=== PATIENT | male | born 1955 | race Caucasian/White ===

== ENCOUNTER 2021-12-11 00:17 | Inpatient (IN) | payer MEDICARE, BC, SELFPAY ==
[2021-12-11] VITALS (11 sets, daily range): BP systolic 121–167; BP diastolic 63–93; PULSE 67–110; RESP 16–29; TEMP 36.5–36.9; O2SAT 94–99; BMI 35.9
--- NOTE | 2021-12-11 00:22 | PC.NURSE ---
PT ARRIVED TO FLOOR VIA STRETCHER PER [facility] @ 0028
--- NOTE | 2021-12-11 01:24 | PC.NURSE ---
12/10/21 7506: REPORT RECEIVED FROM FREDERICK DUNBAR AT [facility]. I SPOKE WITH DR. DE OLIVEIRA WHO ACCEPTED THE PATIENT AND RECEIVED ADMISSION ORDERS. I ALSO SPOKE WITH DR. HALL, WHO REQUESTED PATIENT BE TRANSFERRED IF WE HAD BED AVAILABLE. REPORT PASSED TO Indy PEARSON RN PRIMARY NURSE.
--- NOTE | 2021-12-11 01:27 | ECG_ITS ---
APPROVED REPORT Exam: Resting ECG HR:77 bpm ECG Measurements Heart Rate 77 AXES SC 154 P -5 QRSd 120 QRS -5 QT 403 T 26 QTc 434 Conclusion SINUS RHYTHM POSSIBLE LATERAL MYOCARDIAL INFARCTION , OF INDETERMINATE AGE [30 ms Q WAVE IN I/aVL/V5/V6] ABNORMAL ECG UNCONFIRMED REPORT Electronically signed by : Nas Reyna MD 12/11/2021 14:17:53
[2021-12-11 01:28] LABS: Influenza A, PCR Not Detected (NotDetected); Influenza B, PCR Not Detected (NotDetected)
[2021-12-11 01:30] LABS: Basophils % 0.2 % (0.1-2.0); Eosinophils % 0.4 % (0.1-12.0); Hemoglobin 11.7 g/dL (14.1-18.0); Lymphocytes # 0.2 K/mm3 (0.7-4.5); Mean Corpuscular HGB Conc 32.5 g/dL (31.8-35.4); Mean Corpuscular Hemoglobin 29.6 pg (27.0-31.2); Mean Corpuscular Volume 91.1 fl (80-94); Mean Platelet Volume 7.9 fl (7.4-10.4); Monocytes # 0.1 K/mm3 (0.1-1.0); Monocytes % 3.2 % (1.7-9.3); Neutrophils # 2.7 K/mm3 (1.8-7.8); Neutrophils % 90.2 % (37.0-80.0); Platelet Count 191 K/mm3 (142-424); Red Blood Count 3.96 M/mm3 (4.60-6.20); Red Cell Distribution Width 14.4 % (11.5-17.5)
[2021-12-11 01:34] LABS: MANUAL DIFFERENTIAL MANUAL DIFFERENTIAL (MANUAL DIFF)
[2021-12-11 01:39] LABS: Anion Gap 8.6 mEq/L (5-15); Blood Urea Nitrogen 19 mg/dl (9-20); Calcium 8.6 mg/dl (8.4-10.2); Carbon Dioxide 27 mmol/L (22.0-30.0); Chloride 108 mmol/L (98-107); Creatinine Clearance Estimated 123 mL/min (50-200); Estimated Glomerular Filt Rate 84 ml/min (>60); GFR (African American) 102 ML/MIN (>60); Glucose 232 mg/dl (74-100); Potassium 3.6 mmoL/L (3.5-5.1); Sodium 140 mmol/L (136-145)
[2021-12-11 01:49] LABS: Coronavirus 19, PCR Detected (NotDetected)
[2021-12-11 02:45] LABS: Troponin I 0.11 ng/ml (0.00-0.034)
[2021-12-11 03:32] LABS: Lymphocytes % 14 % (10-50); Neutrophils % 84 % (42-76); Platelet Estimate Normal; Total Cells Counted 100
--- NOTE | 2021-12-11 04:06 | PC.NURSE ---
Pt is currently on 2L O2 NC. Has c/o soa since arrival to floor. Rhonchi and crackles noted to lung daniel. Pt denies any CP. Pt has ambulated with assist to BR. Tolerated fair. VSS at this time. Will continue to monitor.
--- NOTE | 2021-12-11 06:00 | XR_ITS ---
PROCEDURE INFORMATION: Exam: XR Chest Exam date and time: 12/11/2021 5:36 AM Age: 66 years old Clinical indication: Condition or disease; Lung condition and disease; Pneumonia; Additional info: Covid TECHNIQUE: Imaging protocol: XR of the chest. Views: 1 view. COMPARISON: No relevant prior studies available. FINDINGS: Lungs: Mild to moderate interstitial/alveolar opacities, greater on the right; question pneumonia. Pleural spaces: No pneumothorax. Heart/Mediastinum: Cardiomegaly. Bones/joints: No acute fracture. IMPRESSION: 1. Mild to moderate interstitial/alveolar opacities, greater on the right; question pneumonia. 2. Cardiomegaly.
[2021-12-11 06:13] LABS: POC Glucose,Bedside 206 (70-110)
[2021-12-11 06:13] LABS: POC Glucose,Bedside 277 (70-110)
--- NOTE | 2021-12-11 07:25 | HMH.PHAVTE ---
[facility] Pharmacy VTE Monitoring - Patient Demographics Admission date: 12/11/21 Report Date: 12/11/21 Time: 07:25 Allergies/Adverse Reactions: Patient Allergies zolpidem [From Ambien] Adverse Reaction (Verified 12/11/21 00:36) Height: 1.85 m Weight: 123.405 kg - VTE Risk Labs: VTE Related Lab Results Hgb 11.7 g/dL (14.1-18.0) L 12/11/21 01:21 Hct 36.0 % (42.0-52.0) L 12/11/21 01:21 Plt Count 191 K/mm3 (142-424) 12/11/21 01:21 BUN 19 mg/dl (9-20) 12/11/21 01:21 Creatinine 0.90 mg/dl (0.66-1.25) 12/11/21 01:21 Estimated Creat Clear 123 mL/min (50-200) 12/11/21 01:21 VTE Risk Level: Moderate Risk - Prophylaxis VTE Prophylaxis Ordered?: Yes Types of VTE Prophylaxis: TEDS Knee High Location of Applied Device: Bilateral Lower Extremeties
--- NOTE | 2021-12-11 08:08 | HMH.PHAINT ---
MEDICATION RECONCILIATION COMPLETED ON PATIENT USING EXTERNAL FILL HISTORY FROM PHARMACY AND LIST FROM [facility]. -ALEX BUNND
--- NOTE | 2021-12-11 08:37 | CA_ITS ---
APPROVED REPORT EXAM: Comprehensive 2D, Doppler, and color-flow Echocardiogram Chief Deputy Sheriff: Gayathri Villatoro CRT Ht: 6 ft 0 in Wt: 272lbs BSA: 2.43 BP: 166/85 mmHg Indications: COVID Pneuomonia, SOB, morbid obesity, HTN. 2D Dimensions LVOT 2.39 cm (M/F) 1.5-2.5 M-Mode Dimensions RVDd 3.07 cm (0.9-2.6) LA Diam 2.83 cm (1.9-4.0) LVDd 4.42 cm (3.5-5.7) Ao Diam 2.73 cm (2.0-3.7) LVDs 3.75 cm (3.5-5.7) IVSd 0.57 cm (0.6-1.1) PWd 0.86 cm (0.6-1.1) EF (Teich) 32.30% FS 15.20% EDV (Teich) 88.60 mL ESV (Teich) 60.00 mL LV Diastology E Decel Time 190.00 (160-240 msec) E/A Ratio 0.7 MED E' 5.50 (< 7 cm/sec) E'/MED E' Ratio 13.02 (>14) LAT E' 7.30 (<10 cm/sec) E/LAT E' Ratio 9.81 (>14) Aortic Valve LVOT Max 89.00 (70-110 cm/s) LVOT VTI 17.77 cm AoV Peak Uriel. 207.00 (50-130 cm/s) AO Peak GR. 17.20 mmHg AO Mean GR. 8.40 (<5 mmHg) AO VTI 37.86 (18-25 cm) ROGELIO (VTI) 2.11 (2.5-4.5 cm2) Mitral Valve MV E Max Uriel. 72.00 (40-130 cm/s) MV A Velocity 97.00 (40-130 cm/s) E/A Ratio 0.74 MV Decel. Time 190.00 (160-240 ms) MV PHT 56.00 ms Left Ventricle Technically difficult study because of the patient factors and poor acoustic windows. Left atrium is mildly enlarged, left ventricle is normal size, mild concentric left ventricular hypertrophy, estimated ejection fraction 55% with no regional wall motion abnormality, grade 1 diastolic dysfunction seen without tissue Doppler evidence of raise left atrial pressure. Right Ventricle Right atrium and right ventricle are normal size and contractility. Aortic Valve Thickened and calcified aortic valve morphology is not well visualized, there is no significant aortic stenosis or aortic insufficiency. Mitral Valve Mitral valve grossly normal, there is trace mitral regurgitation. Tricuspid Valve Tricuspid valve grossly normal, there is trace tricuspid regurgitation, tricuspid regurgitation jet velocity is inadequate for calculation of the right ventricular systolic pressure. Pulmonic Valve Pulmonic valve is poorly visualized. Great Vessels Aortic root is normal size. Inferior vena cava is poorly visualized. Pericardium No significant pericardial effusion noted. Conclusion 1. Mildly enlarged left atrium, normal left ventricular size, mild concentric left ventricular hypertrophy, estimated ejection fraction 55% with no regional wall motion abnormality, grade 1 diastolic dysfunction seen without tissue Doppler evidence of raise left atrial pressure. 2. Thickened and calcified aortic valve without aortic stenosis aortic insufficiency. 3. Trace mitral and tricuspid regurgitation. 4. No significant pericardial effusion noted. 5. Inferior vena cava is poorly visualized. Electronically signed by : Romeo Ledesma MD 12/11/2021 12:43:55
--- NOTE | 2021-12-11 09:04 | HMH.CNCARD ---
History of Present Illness Consult date: 12/11/21 Requesting physician: Regis Bangura Consult reason: shortness of breath Chief complaint: soa, covid pneumonia, elevated trop Additional Medical History:: Medical Hx: Lambert Eaton myasthenic syndrome HTN DM2 reports clean heart cath April 2021 at [facility]. Sees Dr. Ross in [facility]. History of present illness: 66 year old male with past medical hx of Lamber-Eaton syndrome, HTN, DM II, presented to this facility as transfer from [facility] for elevated trop. Patient reports the last week had been experiencing worsening leg and arm weakness. Went to [place] where he sees a neurologist for his Lambert-Eaton syndrome and tested positive for covid 19. Patient was sent home. States Tuesday- Tuesday felt better with only mild soa. On Tuesday night symptoms increased and had significant worsening of bilateral LE and UE weakness and numbness with worsening soa. Denies every having chest pain. Reports by yesterday was having difficulty ambulating so went to ER at [facility]. He had an elevated high sensitivity trop on 106. Patient was transferred to this facility for cardiology consult. Patient continues to deny chest pain, only complaint is soa and weakness to extremities. Reports had a clean heart cath at [facility] [place] in April 2021, medical records requested. Troponin at this facility 0.11. EKG negative for ischemic changes. Chest xray showed interstitial alveolar opacities greater on right-questionable pneumonia and cardiomegaly. BP noted to be in the 150s. [facility] History Medical History: Reports:: Diabetes Mellitus Type 2, Hyperlipidemia, Hypertension *Have you ever received a pneumonia vaccine?: No *Have you received a flu vaccine this season?: Yes Other Surgeries: Yes: Colonoscopy - *Social History Smoking Status: Unknown if ever smoked Alcohol Intake: never *Occupational Status:: retired *Travel in the last 8 weeks: Inside the [place] Family Hx:: Cancer, Diabetes, Hyperlipidemia Meds Home Medications Medication Instructions Recorded Confirmed Type Albuterol Sulfate [Albuterol 2 puff IH Q4HP PRN 12/11/21 12/11/21 History Sulfate Hfa] Amifampridine Phosphate [Firdapse] 20 mg PO QID 12/11/21 12/11/21 History Aspirin [Aspirin 81mg chewable 81 mg PO DAILY 12/11/21 12/11/21 History tab] Atorvastatin Calcium [Lipitor 20mg 20 mg PO HS 12/11/21 12/11/21 History Tablet*] Cholecalciferol (Vitamin D3) 50 mcg PO BID 12/11/21 12/11/21 History [Vitamin D3] Cyanocobalamin/Folic Acid [Vitamin 1 each PO DAILY 12/11/21 12/11/21 History J68-Fmipo Acid Tablet] Gabapentin [Gabapentin 400mg Cap] 400 mg PO 5XDAY 12/11/21 12/11/21 History RX: Potassium Chloride 10 meq PO DAILY 12/11/21 12/11/21 History RX: Pyridostigmine [place] 60 mg PO 5XDAY 12/11/21 12/11/21 History RX: mycophenolate mofetiL 500 mg PO DIRECTED 12/11/21 12/11/21 History [Mycophenolate Mofetil] Valganciclovir HCl [Valcyte] 450 mg PO DAILY 12/11/21 12/11/21 History azaTHIOprine [azaTHIOprine 50mg 50 mg PO DAILY 12/11/21 12/11/21 History Tablet] glipiZIDE [Glipizide Xl] 2.5 mg PO DAILY 12/11/21 12/11/21 History Allergies Allergy/AdvReac Type Severity Reaction Status Date / Time zolpidem [From Ambien] AdvReac Verified 12/11/21 00:36 Exam Vital signs and Labs for Last 24 Hours: Temp Pulse Resp BP Pulse Ox 97.8 F 110 H 16 121/63 98 12/11/21 08:00 12/11/21 08:00 12/11/21 08:00 12/11/21 08:00 12/11/21 08:00 Laboratory Results - last 24 hr 12/11/21 00:32: POC Glucose 206 H 12/11/21 01:21: WBC 3.0 L, RBC 3.96 L, Hgb 11.7 L, Hct 36.0 L, MCV 91.1, MCH 29.6, MCHC 32.5, RDW 14.4, Plt Count 191, MPV 7.9, Neut % (Auto) 90.2 H, Lymph % (Auto) 6.0 L, [place] % (Auto) 3.2, Eos % (Auto) 0.4, Baso % (Auto) 0.2, Neut # (Auto) 2.7, Lymph # (Auto) 0.2 L, [place] # (Auto) 0.1, Eos # (Auto) 0.0, Baso # (Auto) 0.0, Total Counted 100, Neutrophils % (Manual) 84 H, Lymphocytes % (Man
--- NOTE | 2021-12-11 13:25 | HMH.PULMCON ---
*Admission Date: 12/11/21 *Reason for consult:: #Acute hypoxic respiratory failure, COVID-19 pneumonia *History of present illness: Mr. Solano is a 66-year-old male never smoker no prior respiratory complaints, carries a diagnosis of Eaton-Lambert syndrome on medications including CellCept, mycophenolate along with Firdipase and pyridostigmine presented to the hospital worsening respiratory and found to be having COVID-19 pneumonia and pulmonary was called for further management. [facility] History Medical History: Reports:: Diabetes Mellitus Type 2, Hyperlipidemia, Hypertension *Have you ever received a pneumonia vaccine?: No *Have you received a flu vaccine this season?: Yes Other Surgeries: Yes: Colonoscopy, Other - *Social History Last grade of school completed: Some college Smoking Status: Never smoker Alcohol Intake: never Alcohol Intake Frequency:: other Substance Use Type: other *Occupational Status:: retired *Travel in the last 8 weeks: Inside the [facility] Family Hx:: Cancer, Diabetes, Hyperlipidemia ROS - Cons Reports body ache(s), Reports chills, Reports fatigue - Eyes Reports blurry vision - ENT Denies bleeding gums - Card Reports shortness of breath, Reports shortness of breath with activity - Resp Respiratory: Reports chest congestion, Reports cough, Denies excessive phlegm production, Reports cough with sputum production, Denies pain with breathing, Reports snoring, Denies wheezing - GI Gastrointestingal: Denies: abdominal pain - [place] Musculoskeletal: Reports muscle cramps, Reports muscle weakness - Psych Denies thoughts of hurting/killing others, Denies thoughts of hurting/killing yourself Meds Home Medications Medication Instructions Recorded Confirmed Type Albuterol Sulfate [Albuterol 2 puff IH Q4HP PRN 12/11/21 12/11/21 History Sulfate Hfa] Amifampridine Phosphate [Firdapse] 20 mg PO QID 12/11/21 12/11/21 History Aspirin [Aspirin 81mg chewable 81 mg PO DAILY 12/11/21 12/11/21 History tab] Atorvastatin Calcium [Lipitor 20mg 20 mg PO HS 12/11/21 12/11/21 History Tablet*] Cholecalciferol (Vitamin D3) 50 mcg PO BID 12/11/21 12/11/21 History [Vitamin D3] Cyanocobalamin/Folic Acid [Vitamin 1 each PO DAILY 12/11/21 12/11/21 History [id number]-[id number] Acid Tablet] Gabapentin [Gabapentin 400mg Cap] 400 mg PO 5XDAY 12/11/21 12/11/21 History Potassium Chloride 10 meq PO DAILY 12/11/21 12/11/21 History Pyridostigmine [place] 60 mg PO 5XDAY 12/11/21 12/11/21 History Valganciclovir HCl [Valcyte] 450 mg PO DAILY 12/11/21 12/11/21 History azaTHIOprine [azaTHIOprine 50mg 50 mg PO DAILY 12/11/21 12/11/21 History Tablet] glipiZIDE [Glipizide Xl] 2.5 mg PO DAILY 12/11/21 12/11/21 History mycophenolate mofetiL 500 mg PO DIRECTED 12/11/21 12/11/21 History [Mycophenolate Mofetil] Allergies Allergy/AdvReac Type Severity Reaction Status Date / Time zolpidem [From Ambien] AdvReac Verified 12/11/21 00:36 Exam - Constitutional Constitutional:: Present: no acute distress - HENMT Exam HENMT: Present: normocephalic - Eye Exam Eyes:: Present: normal appearance both eyes and related structures - Neck Exam Neck:: Present: normal visual inspection - Respiratory Exam Respiratory:: Present: able to speak in complete sentences, respiratory distress, rhonchi. Absent: wheezing - Cardiovascular Exam Cardiac:: Present: S1, S2 - GI Exam GI:: Present: soft - Skin Exam Skin: Present: warm, no rash - Neurological Exam Neurological: Present: alert - Extremities Exam Extremities: Present: no cyanosis, no clubbing, no edema Internal Medicine - CN: Reslt - Labs CBC & Chem 7: 12/11/21 01:21 12/11/21 12:10 Labs: Short CBC 12/11/21 Range/Units 01:21 WBC 3.0 L (4.8-10.8) K/mm3 Hgb 11.7 L (14.1-18.0) g/dL Hct 36.0 L (42.0-52.0) % Plt Count 191 (142-424) K/mm3 [facility] 12/11/21 01:21 Sodium 140 Potassium 3.6 Chloride 108 H Carbon Dioxid
[2021-12-11 13:50] LABS: Lactate Dehydrogenase 255 U/L (313-618)
[2021-12-11 13:55] LABS: C-Reactive Protein 151.6 mg/L (0-4)
[2021-12-11 14:21] LABS: Alanine Aminotransferase 30 U/L (12-78); Albumin Level 3.7 g/dl (3.5-5.0); Albumin/Globulin Ratio 1.1 (1.1-1.8); Alkaline Phosphatase 92 U/L (38-126); Anion Gap 7.6 mEq/L (5-15); Aspartate Amino Transferase 50 U/L (17-59); Blood Urea Nitrogen 19 mg/dl (9-20); Calcium 8.6 mg/dl (8.4-10.2); Carbon Dioxide 27 mmol/L (22.0-30.0); Chloride 109 mmol/L (98-107); Creatinine Clearance Estimated 123 mL/min (50-200); Estimated Glomerular Filt Rate 74 ml/min (>60); GFR (African American) 90 ML/MIN (>60); Globulin 3.4 g/dL (1.3-3.2); Glucose 227 mg/dl (74-100); Potassium 3.6 mmoL/L (3.5-5.1); Sodium 140 mmol/L (136-145); Total Protein,Serum 7.1 g/dl (6.3-8.2)
[2021-12-11 14:27] LABS: Bilirubin,Total < 0.1 mg/dl (0.2-1.3)
--- NOTE | 2021-12-11 15:31 | HMH.HPDC ---
General - General Admission date:: 12/11/21 Discharge date: 12/11/21 *Admission Date: 12/11/21 *Chief complaint: weakness *History of present illness: 66 year old male presented to this facility as transfer from [facility] for elevated trop and weakness. Patient reports the last week had been experiencing worsening leg and arm weakness,hx of Lamber-Eaton syndrome, HTN, DM II, Went to [place] where he sees a neurologist for his Lambert-Eaton syndrome and tested positive for covid 19 on Tuesday. On Tuesday night symptoms increased and had significant worsening of bilateral LE and UE weakness and numbness with worsening soa. Pt states he lost control of his arms and legs. Patient was transferred to this facility for cardiology consult for elevated trop. [facility] History I have reviewed the patient's past medical history: Yes Medical History: Reports:: Diabetes Mellitus Type 2, Hyperlipidemia, Hypertension *Have you ever received a pneumonia vaccine?: No *Have you received a flu vaccine this season?: Yes Other Surgeries: Yes: Colonoscopy - *Social History Smoking Status: Unknown if ever smoked Alcohol Intake: never *Occupational Status:: retired *Travel in the last 8 weeks: Inside the [place] Family Hx:: Cancer, Diabetes, Hyperlipidemia Review of Systems - Review of Systems Review of systems:: pertinent systems reviewed and negative unless documented below - Constitutional Denies body ache(s) - Eyes Denies blurry vision - ENT Denies abnormal hearing - *Cardiovascular Reports shortness of breath, Denies chest pain at rest - *Respiratory Denies change in phlegm color - *Gastrointestinal Denies abdominal pain - *Genitourinary Denies urinary incontinence - *Musculoskeletal Reports abnormal walking, Reports muscle weakness - Integumentary/Breasts Denies rash - *Neurologic Reports weakness, Denies abnormal walking - Psychiatric Denies abnormal sleep pattern - Endocrine Denies cold intolerance - Hematologic/Lymphatic Denies easy bleeding - Allergic/Immunologic Denies GI upset with certain foods Exam Vital signs and Labs for Last 24 Hours: Temp Pulse Resp BP Pulse Ox 97.8 F 79 29 H 150/77 H 94 L 12/11/21 08:00 12/11/21 10:00 12/11/21 10:00 12/11/21 10:00 12/11/21 10:00 Laboratory Results - last 24 hr 12/11/21 00:32: POC Glucose 206 H 12/11/21 01:21: WBC 3.0 L, RBC 3.96 L, Hgb 11.7 L, Hct 36.0 L, MCV 91.1, MCH 29.6, MCHC 32.5, RDW 14.4, Plt Count 191, MPV 7.9, Neut % (Auto) 90.2 H, Lymph % (Auto) 6.0 L, [place] % (Auto) 3.2, Eos % (Auto) 0.4, Baso % (Auto) 0.2, Neut # (Auto) 2.7, Lymph # (Auto) 0.2 L, [place] # (Auto) 0.1, Eos # (Auto) 0.0, Baso # (Auto) 0.0, Total Counted 100, Neutrophils % (Manual) 84 H, Lymphocytes % (Manual) 14, Basophils % (Manual) 2.0 H, Platelet Estimate Normal 12/11/21 01:21: Sodium 140, Potassium 3.6, Chloride 108 H, Carbon Dioxide 27, Anion Gap 8.6, BUN 19, Creatinine 0.90, Estimated Creat Clear 123, Estimated GFR 84, Est GFR ( Amer) 102, Glucose 232 H, Calcium 8.6, Troponin I 0.11 H 12/11/21 01:21: SARS-CoV-2 (PCR) Detected A, Influenza A Untype (PCR) Not detected, Influenza Type B (PCR) Not detected 12/11/21 02:21: Lactate Dehydrogenase 255 L, C-Reactive Protein 151.6 H 12/11/21 05:40: POC Glucose 277 H 12/11/21 12:10: Sodium 140, Potassium 3.6, Chloride 109 H, Carbon Dioxide 27, Anion Gap 7.6, BUN 19, Creatinine 1.00, Estimated Creat Clear 123, Estimated GFR 74, Est GFR ( Amer) 90, Glucose 227 H, Calcium 8.6, Total Bilirubin < 0.1 L, AST 50, ALT 30, Alkaline Phosphatase 92, Total Protein 7.1, Albumin 3.7, Globulin 3.4 H, Albumin/Globulin Ratio 1.1 I & O for Last 24 hours: Intake & Output 12/09/21 12/10/21 12/11/21 12/12/21 11:59 11:59 11:59 11:59 Weight 272 lb 1 oz 271 lb 2.697 oz - Constitutional no acute distress - *Routine HEENT Exam Head: Present: normocephalic Eye: Present: PERRL ENT: Present: mucous membra
[2021-12-11 16:57] LABS: POC Glucose,Bedside 246 (70-110)
--- NOTE | 2021-12-11 17:58 | PC.NURSE ---
PT IS SITTING UP IN THE CHAIR. NO COMPLAINTS OF DISCOMFORT. EATING AND DRINKING FAIR. O2 SATURATION HAS MAINTAINED 90-94% ON 2 L NC. LUNG SOUNDS DIMINISHED. ABDOMEN SOFT/NON TENDER WITH ACTIVE BOWEL SOUNDS. AMBULATED TO THE BATHROOM WITH WALKER. WILL CONTINUE TO MONITOR.
[2021-12-11 21:20] LABS: POC Glucose,Bedside 272 (70-110)
[2021-12-12] VITALS (8 sets, daily range): BP systolic 104–155; BP diastolic 57–99; PULSE 60–95; RESP 16–22; TEMP 36.6–36.9; O2SAT 94–99; BMI 35.6
--- NOTE | 2021-12-12 05:16 | PC.NURSE ---
pt up to chair at beginning of shift, has remained on 2L or home CPAP t/o the shift, O2 sats 94-96%, HR 66-81, has not complained of pain this shift, has ambulated to BR with SB assist and walker, pt has attempted to lay prone some this shift
[2021-12-12 10:04] LABS: Chloride 108 mmol/L (98-107)
[2021-12-12 10:05] LABS: Potassium 3.9 mmoL/L (3.5-5.1); Sodium 143 mmol/L (136-145)
[2021-12-12 10:07] LABS: Alanine Aminotransferase 58 U/L (12-78); Alkaline Phosphatase 89 U/L (38-126); Aspartate Amino Transferase 91 U/L (17-59); Bilirubin,Total 0.4 mg/dl (0.2-1.3); Blood Urea Nitrogen 24 mg/dl (9-20); Creatinine Clearance Estimated 122 mL/min (50-200); Estimated Glomerular Filt Rate 84 ml/min (>60); GFR (African American) 102 ML/MIN (>60)
[2021-12-12 10:08] LABS: Albumin/Globulin Ratio 1.1 (1.1-1.8); Anion Gap 9.9 mEq/L (5-15); Calcium 9.7 mg/dl (8.4-10.2); Carbon Dioxide 29 mmol/L (22.0-30.0); Globulin 3.6 g/dL (1.3-3.2); Glucose 232 mg/dl (74-100); Total Protein,Serum 7.6 g/dl (6.3-8.2)
--- NOTE | 2021-12-12 15:25 | HMH.ACPN2 ---
Internal Medicine - PN: Subj *Date: 12/12/21 *Time: 15:25 Interval history: UC does not have a bed currently patient is clinically stable nursing staff cites no problems maintains decent sats no dyspnea Exam Vital signs and Labs for Last 24 Hours: Temp Pulse Resp BP Pulse Ox 98.0 F 74 18 121/62 97 12/12/21 12:00 12/12/21 12:00 12/12/21 12:00 12/12/21 12:00 12/12/21 12:00 Laboratory Results - last 24 hr 12/11/21 11:25: POC Glucose 272 H 12/11/21 16:47: POC Glucose 246 H 12/12/21 09:34: Sodium 143, Potassium 3.9, Chloride 108 H, Carbon Dioxide 29, Anion Gap 9.9, BUN 24 H D, Creatinine 0.90, Estimated Creat Clear 122, Estimated GFR 84, Est GFR ( Amer) 102, Glucose 232 H, Calcium 9.7, Total Bilirubin 0.4, AST 91 H D, ALT 58 D, Alkaline Phosphatase 89, Total Protein 7.6, Albumin 4.0, Globulin 3.6 H, Albumin/Globulin Ratio 1.1 I & O for Last 24 hours: Intake & Output 12/09/21 12/10/21 12/11/21 12/12/21 23:59 23:59 23:59 23:59 Intake Total 600 / 600 720 / 720 Balance 600 / 600 720 / 720 Weight 271 lb 2.697 oz 269 lb 1.6 oz - Constitutional no acute distress - *Routine HEENT Exam Head: Present: normocephalic Eye: Present: EOMI, PERRL ENT: Present: mucous membranes moist - *Routine Neck Exam Present: supple. Absent: lymphadenopathy - *Routine Respiratory Exam Present: rhonchi. Absent: accessory muscle use, prolonged expiratory phase, respiratory distress, wheezes, crackles - *Routine Cardiovascular Exam Present: RRR - *Routine Abdominal Exam Present: soft, normoactive bowel sounds. Absent: tenderness - *Routine Extremities Exam Absent: cyanosis, clubbing, edema - *Routine Skin Exam Present: warm. Absent: rash - *Routine Neurological Exam Present: alert, oriented X3, vision grossly intact, hearing grossly intact Assessment and Plan (1) Dyspnea Status: Acute Category: Medical Code(s): R06.00 - Dyspnea, unspecified (2) COVID-19 Status: Acute Category: Medical Code(s): U07.1 - COVID-19 (3) Lambert-Eaton myasthenic syndrome Status: Acute Category: Medical Code(s): G70.80 - Lambert-Eaton syndrome, unspecified (4) HTN (hypertension) Status: Acute Category: Medical Code(s): I10 - Essential (primary) hypertension (5) Non-ischemic myocardial injury (non-traumatic) Status: Acute Category: Medical Code(s): I5A - Non-ischemic myocardial injury (non-traumatic) - Assessment and plan all Dx Assessment and Plan for all problems:: continue regimen with close attention to neurologic status
--- NOTE | 2021-12-12 16:30 | PC.NURSE ---
Pt has no change since last assessment. Will continue to monitor.
[2021-12-12 17:16] LABS: POC Glucose,Bedside 137 (70-110)
[2021-12-13] VITALS (7 sets, daily range): BP systolic 116–159; BP diastolic 51–82; PULSE 80–106; RESP 20–22; TEMP 36.5–36.9; O2SAT 92–98; BMI 35.0
--- NOTE | 2021-12-13 04:08 | PC.NURSE ---
pt has rested t/o shift, has remained on 3L NC or home CPAP t/o the shift, has not complained of pain, did state that he felt like he had an anxiety attack at one point this shift, O2 sats 92-98%, HR 82-87, telemetry has shown NSR, HR 82-87, has ambulated to with standby assist and home walker
--- NOTE | 2021-12-13 06:00 | XR_ITS ---
PROCEDURE INFORMATION: Exam: XR Chest Exam date and time: 12/13/2021 5:22 AM Age: 66 years old Clinical indication: Shortness of breath; Additional info: Covid TECHNIQUE: Imaging protocol: XR of the chest. Views: 1 view. COMPARISON: CR XR CHEST PORTABLE 12/11/2021 5:36 AM FINDINGS: Lungs: [id number] interstitial/alveolar opacities in both lungs, greatest in the perihilar regions. Findings appear similar to previous; question pneumonia. Pleural spaces: No pneumothorax. Heart/Mediastinum: Mild prominence of the cardiac silhouette, accentuated by the AP projection. Bones/joints: No acute fracture. IMPRESSION: [id number] interstitial/alveolar opacities in both lungs, greatest in the perihilar regions. Findings appear similar to previous; question pneumonia.
[2021-12-13 10:57] LABS: Chloride 108 mmol/L (98-107); Potassium 4.1 mmoL/L (3.5-5.1); Sodium 140 mmol/L (136-145)
[2021-12-13 11:00] LABS: Alanine Aminotransferase 45 U/L (12-78); Albumin Level 4.1 g/dl (3.5-5.0); Albumin/Globulin Ratio 1.2 (1.1-1.8); Alkaline Phosphatase 86 U/L (38-126); Anion Gap 10.1 mEq/L (5-15); Aspartate Amino Transferase 65 U/L (17-59); Bilirubin,Total 0.5 mg/dl (0.2-1.3); Blood Urea Nitrogen 24 mg/dl (9-20); Calcium 9.4 mg/dl (8.4-10.2); Carbon Dioxide 26 mmol/L (22.0-30.0); Creatinine Clearance Estimated 120 mL/min (50-200); Estimated Glomerular Filt Rate 112 ml/min (>60); GFR (African American) 136 ML/MIN (>60); Globulin 3.4 g/dL (1.3-3.2); Glucose 216 mg/dl (74-100); Total Protein,Serum 7.5 g/dl (6.3-8.2)
--- NOTE | 2021-12-13 11:44 | HMH.ACPN2 ---
Internal Medicine - PN: Subj *Date: 12/13/21 *Time: 11:52 Interval history: patient with some anxiety this morning he would like to change the timing of his firdapse; he titrates this at home and regularly gives at 3am uses cpap at night regularly 90's on 2-3 lpm cxr from this am revd ongoing bibasilar infiltrates several calls to have been made for transfer another call made this am, awaiting notice spoke with pulmonary he suggested adding dex and moving to continuous cpap if work of breathing escalates Exam Vital signs and Labs for Last 24 Hours: Temp Pulse Resp BP Pulse Ox 98.4 F 81 20 159/82 H 96 12/13/21 08:00 12/13/21 08:00 12/13/21 08:00 12/13/21 08:00 12/13/21 08:00 Laboratory Results - last 24 hr 12/12/21 17:06: POC Glucose 137 H 12/13/21 10:40: Sodium 140, Potassium 4.1, Chloride 108 H, Carbon Dioxide 26, Anion Gap 10.1, BUN 24 H, Creatinine 0.70 D, Estimated Creat Clear 120, Estimated GFR 112, Est GFR ( Amer) 136 D, Glucose 216 H, Calcium 9.4, Total Bilirubin 0.5, AST 65 H D, ALT 45, Alkaline Phosphatase 86, Total Protein 7.5, Albumin 4.1, Globulin 3.4 H, Albumin/Globulin Ratio 1.2 I & O for Last 24 hours: Intake & Output 12/10/21 12/11/21 12/12/21 12/13/21 23:59 23:59 23:59 23:59 Intake Total 600 / 600 840 / 840 360 / 360 Balance 600 / 600 840 / 840 360 / 360 Weight 271 lb 2.697 oz 269 lb 1.6 oz 264 lb 6.4 oz Microbiology Reports for the Last 24 Hours: Microbiology 12/12/21 15:00 Sputum - Expectorated Sputum Gram Stain - Final - Constitutional no acute distress, cooperative - *Routine HEENT Exam Head: Present: normocephalic Eye: Present: EOMI, PERRL ENT: Present: mucous membranes moist - *Routine Neck Exam Present: supple. Absent: lymphadenopathy - *Routine Respiratory Exam Absent: accessory muscle use, respiratory distress, rhonchi, wheezes - *Routine Cardiovascular Exam Present: RRR - *Routine Abdominal Exam Present: soft, normoactive bowel sounds. Absent: tenderness - *Routine Extremities Exam Absent: cyanosis, clubbing, edema - *Routine Skin Exam Present: warm. Absent: rash - *Routine Neurological Exam Present: alert, oriented X3 Assessment and Plan (1) Dyspnea Status: Acute Category: Medical Code(s): R06.00 - Dyspnea, unspecified (2) COVID-19 Status: Acute Category: Medical Code(s): U07.1 - COVID-19 (3) Lambert-Eaton myasthenic syndrome Status: Acute Category: Medical Code(s): G70.80 - Lambert-Eaton syndrome, unspecified (4) HTN (hypertension) Status: Acute Category: Medical Code(s): I10 - Essential (primary) hypertension (5) Non-ischemic myocardial injury (non-traumatic) Status: Acute Category: Medical Code(s): I5A - Non-ischemic myocardial injury (non-traumatic) - Assessment and plan all Dx Assessment and Plan for all problems:: continue remdesivir add dex consider lasix; normal ef on echo close observation for clinical changes
--- NOTE | 2021-12-13 12:54 | HMH.DCSUM ---
General - General Admission date:: 12/11/21 HPI HPI: 66 year old male presented to this facility as transfer from [facility] for elevated trop and weakness. Patient reports the last week had been experiencing worsening leg and arm weakness,hx of Lamber-Eaton syndrome, HTN, DM II, Went to [place] where he sees a neurologist for his Lambert-Eaton syndrome and tested positive for covid 19 on Tuesday. On Tuesday night symptoms increased and had significant worsening of bilateral LE and UE weakness and numbness with worsening soa. Pt states he lost control of his arms and legs. Patient was transferred to this facility for cardiology consult for elevated trop. Hospital Course Hospital Course: The patient was admitted to our service, transfer from [facility], had elevated troponins. Was seen in consultation per cardiology, an echo was performed and the result is as follows Conclusion 1. Mildly enlarged left atrium, normal left ventricular size, mild concentric left ventricular hypertrophy, estimated ejection fraction 55% with no regional wall motion abnormality, grade 1 diastolic dysfunction seen without tissue Doppler evidence of raise left atrial pressure. 2. Thickened and calcified aortic valve without aortic stenosis aortic insufficiency. 3. Trace mitral and tricuspid regurgitation. 4. No significant pericardial effusion noted. 5. Inferior vena cava is poorly visualized. The patient was diagnosed as COVID-positive last Tuesday. He relays that he has been vaccinated and boosted twice. Chest films have showed an infiltrative process bilateral involvement. Most recent chest x-ray is as follows IMPRESSION: [id number] interstitial/alveolar opacities in both lungs, greatest in the perihilar regions. Findings appear similar to previous; question pneumonia. The patient was seen in consultation with our pulmonary service. He was started on remdesivir and prednisone. Patient routinely uses CPAP at night, has required O2 supplementation per nasal cannula and nursing staff have noticed an increased work of breathing. He had increased anxiety this morning. He received 20 mg of Lasix empirically and broad-spectrum antibiotic coverage was initiated. Patient has a neuromuscular disease, Eaton Lambert syndrome which was diagnosed in 2011. He is followed by a neurologist at [facility]. He is on multiple immunosuppressive agents. He tends to titrate these at home according to his degree of daily exertion, and he relays an exacerbation of Eaton Lambert in 2017. He is very well educated on the syndrome and management. Given the complex constellation of symptoms, including hypoxia, increased work of breathing, bilateral infiltrative process, and multiple immunosuppressants on board we elected to transfer to a tertiary center. Spoke recently with Dr. Simmons at [facility] and they have kindly agreed to accept the patient. I also discussed him with our flight dynamicist who recommended initiation of anticoagulation for prophylaxis. He is on Lovenox 40 currently Objective Vital signs: Temp Pulse Resp BP Pulse Ox 98.4 F 81 20 159/82 H 96 12/13/21 08:00 12/13/21 08:00 12/13/21 08:00 12/13/21 08:00 12/13/21 08:00 no acute distress, cooperative - *Routine HEENT Exam Head: Present: normocephalic Eye: Present: EOMI, PERRL ENT: Present: mucous membranes moist - *Routine Neck Exam Present: supple - *Routine Respiratory Exam Absent: accessory muscle use, prolonged expiratory phase, respiratory distress, wheezes - *Routine Cardiovascular Exam Present: RRR - *Routine Abdominal Exam Present: soft, normoactive bowel sounds. Absent: tenderness - *Routine Extremities Exam Absent: cyanosis, clubbing, edema - *Routine Skin Exam Present: warm. Absent: rash Results Labs on day of discharge: Labs from last 24 hours 12/13/21 12/12/21 10:
--- NOTE | 2021-12-13 17:05 | PC.NURSE ---
Notified at this time by Capacity command at that bed is available. pt is going to medical stepdown 7th floor at the main hospital bed 2.
--- NOTE | 2021-12-13 18:07 | PC.NURSE ---
reports called to [email or web address] [facility] Reports called to [facility] and riky RIVAS is Kareem Benjamin
--- NOTE | 2021-12-13 18:18 | PC.NURSE ---
ems reports they will be here in 1-2 hours
--- NOTE | 2021-12-13 19:29 | PC.NURSE ---
patient released to EMS @ this time.
[2021-12-13 21:46] LABS: POC Glucose,Bedside 186 (70-110)
[2021-12-13 21:46] LABS: POC Glucose,Bedside 251 (70-110)
== END 2021-12-13 19:29 | disposition short-term general hospital (02) | DRG 177 ==
PROVIDERS: Internal Medicine Pulmonary Disease; Admitting Provider Family Medicine; PCP Emergency Medicine; Visit Provider Family Medicine
DX: U07.1 COVID-19 (principal); J12.82 Pneumonia due to coronavirus disease 2019; I21.A1 Myocardial infarction type 2; J96.01 Acute respiratory failure with hypoxia; G70.80 Lambert-Eaton syndrome, unspecified; I10 Essential (primary) hypertension; E11.9 Type 2 diabetes mellitus without complications; Z79.84 Long term (current) use of oral hypoglycemic drugs; G47.30 Sleep apnea, unspecified
CPT/HCPCS: 36415; 71045; 80048; 80053; 82962; 83615; 84484; 85007; 85025; 86140; 87070; 87205; 87220; 93005; 93306; 94640; 94761; C9803; J0456; J0696; U0003; U0005